=== PATIENT | female | born 1980 | race Caucasian/White ===

== ENCOUNTER → 2017-07-28 | Outpatient (REF) | payer OTHER | LOC: M LAB REF 16:14 | DX: J11.1 Influenza due to unidentified influenza virus with other respiratory manifestations (principal) | CPT/HCPCS: 87633 ==

== ENCOUNTER → 2018-06-26 | Outpatient (REF) | payer OTHER ==
[~2018-06-26] MED LIST: /ADVA50050 INH; ALBUPOW9 INH; PERCOCET FT
[2018-06-26 18:05] LABS: BASO % 0.6 % (0.0-1.0); EOS # 0.1 10^3/uL (0.0-0.50); EOS % 0.8 % (0.0-3.0); HEMATOCRIT 40.5 % (36.0-47.0); HEMOGLOBIN 13.9 g/dl (12.0-15.5); LYMPH # 2.2 10^3/uL (1.5-4.5); LYMPH % 35.2 % (24.0-44.0); MEAN CORPUSCULAR HEMOGLOBIN 31.6 pg (27.0-33.0); MEAN CORPUSCULAR HGB CONC 34.3 g/dl (32.0-36.5); MONO # 0.4 10^3/uL (0.0-0.8); NEUTROPHILS # 3.5 10^3/uL (1.8-7.7); NEUTROPHILS % 56.1 % (36.0-66.0); PLATELET COUNT, AUTOMATED 286 10^3/uL (150-450); WHITE BLOOD COUNT 6.2 10^3/uL (4.0-10.0)
[2018-06-26 18:18] LABS: ALBUMIN 3.7 GM/DL (3.2-5.2); ALT/SGPT 12 U/L (12-78); BILIRUBIN,TOTAL 0.4 MG/DL (0.2-1.0); BLOOD UREA NITROGEN 10 MG/DL (7-18); CALCIUM LEVEL 8.6 MG/DL (8.5-10.1); CARBON DIOXIDE LEVEL 26 MEQ/L (21-32); CHLORIDE LEVEL 104 MEQ/L (98-107); CHOLESTEROL LEVEL 185 MG/DL (<200); CHOLESTEROL RISK RATIO 3.303 (<5); CREATININE FOR GFR 0.78 MG/DL (0.55-1.30); GLOMERULAR FILTRATION RATE > 60.0 (>60); GLUCOSE, FASTING 89 MG/DL (70-100); HDL CHOLESTEROL 56 MG/DL (>40); LDL CHOLESTEROL 113 MG/DL (<100); NON-HDL-C 129 MG/DL; POTASSIUM SERUM 4.8 MEQ/L (3.5-5.1); SODIUM LEVEL 138 MEQ/L (136-145); TOTAL PROTEIN 6.7 GM/DL (6.4-8.2); TRIGLYCERIDES LEVEL 79 MG/DL (<150)
[2018-06-26 19:17] LABS: HEMOGLOBIN A1c 5.3 %
== END ==
LOC: M LAB REF 16:49
PROVIDERS: ATTEND Nurse Practitioner Family
DX: Z13.9 Encounter for screening, unspecified (principal)

== ENCOUNTER → 2018-07-07 | Outpatient (CLI) | payer OTHER ==
--- NOTE | 2018-07-07 11:43 | REPMRS ---
Patient History The patient states she has not had a clinical breast exam in over a year. Family history of breast cancer at age 55 in mother, breast cancer at age 70 in maternal grandmother, liver cancer in father, liver cancer in paternal uncle, breast cancer at age 70 in paternal grandmother. 3D TOMOSYNTHESIS WAS PERFORMED. Digital Mammo Screening Bilat: July 07, 2018 - Exam #: [id number] Bilateral CC and MLO view(s) were taken. Technologist: Delmy Spicer, Technologist Prior study comparison: December 30, 2014, digital mammo diagnostic bilateral performed at [facility]. FINDINGS: The breast tissue is heterogeneously dense. This may lower the sensitivity of mammography. There has been no change in the appearance of the mammogram from the prior studies. There is a moderate amount of residual fibroglandular tissue which is fairly symmetric. There is no interval development of dominant mass, areas of architectural distortion, or clustered microcalcification typical of malignancy. Assessment: BI-RADS/ACR category 1 mammogram. Negative Mammogram. Recommendation Routine screening mammogram in 1 year (for women over age 40). This mammogram was interpreted with the aid of an FDA-approved computer-aided dectection system. THE LIFETIME RISK OF BREAST CANCER IS 34.1 %, THEREFORE SUPPLEMENTAL SCREENING MRI OF THE BREASTS IS RECOMMENDED. Electronically Signed By: Ricco Vale MD 07/07/18 [id number]
== END ==
LOC: M RAD 10:58
PROVIDERS: ATTEND Nurse Practitioner Family
DX: Z12.31 Encounter for screening mammogram for malignant neoplasm of breast (principal); Z80.3 Family history of malignant neoplasm of breast; Z80.0 Family history of malignant neoplasm of digestive organs; N60.31 Fibrosclerosis of right breast; N60.32 Fibrosclerosis of left breast

== ENCOUNTER 2019-02-17 07:09 | Inpatient (IN) | payer MEDICAID, OTHER ==
[~2019-02-17] VITALS: Ht 147.3 cm; Wt 87.8 kg
[~2019-02-17 07:09] MED LIST changes: -/ADVA50050 INH; +ADVA1AER2 INH; +OXYC1TAB23 FT; -PERCOCET FT
[2019-02-17] MEDS ORDERED: LORazepam 2 MG TAB PO STA (07:15)
[2019-02-17 08:34] LABS: HEMATOCRIT 40.8 % (36.0-47.0); MEAN CORPUSCULAR HEMOGLOBIN 32.4 pg (27.0-33.0); MEAN CORPUSCULAR HGB CONC 34.3 g/dl (32.0-36.5); MEAN CORPUSCULAR VOLUME 94.4 fl (80.0-96.0); PLATELET COUNT, AUTOMATED 447 10^3/uL (150-450); RED BLOOD COUNT 4.32 10^6/uL (4.00-5.40); WHITE BLOOD COUNT 9.9 10^3/uL (4.0-10.0)
[2019-02-17 08:53] LABS: AMPHETAMINES LEVEL URINE NEGATIVE (NEGATIVE); BARBITURATES URINE NEGATIVE (NEGATIVE); BENZODIAZEPINES URINE NEGATIVE (NEGATIVE); CANNABINOIDS URINE POSITIVE (NEGATIVE); COCAINE METABOLITE URINE NEGATIVE (NEGATIVE); METHADONE URINE NEGATIVE (NEGATIVE); OPIATES URINE NEGATIVE (NEGATIVE); PHENCYCLIDINE URINE NEGATIVE (NEGATIVE)
[2019-02-17 08:57] LABS: HCG, SERUM QUALITATIVE NEGATIVE (NEGATIVE)
[2019-02-17] MEDS ORDERED: MOM 30ML SUSPENSION UDC PO PRN (09:00)
[2019-02-17 09:10] LABS: ACETAMINOPHEN LEVEL < 2.0 UG/ML (10.0-30.0); ALBUMIN 4.1 GM/DL (3.2-5.2); ALT/SGPT 13 U/L (12-78); BILIRUBIN,DIRECT 0.1 MG/DL (0.0-0.2); BILIRUBIN,TOTAL 0.4 MG/DL (0.2-1.0); BLOOD UREA NITROGEN 13 MG/DL (7-18); CALCIUM LEVEL 9.3 MG/DL (8.5-10.1); CARBON DIOXIDE LEVEL 24 MEQ/L (21-32); CHLORIDE LEVEL 105 MEQ/L (98-107); CREATININE FOR GFR 0.82 MG/DL (0.55-1.30); ETHYL ALCOHOL (ETHANOL) < 0.003 % (0.000-0.010); GLOMERULAR FILTRATION RATE > 60.0 (>60); GLUCOSE, FASTING 87 MG/DL (70-100); POTASSIUM SERUM 3.9 MEQ/L (3.5-5.1); SALICYLATE LEVEL 5.3 MG/DL (5.0-30.0); SODIUM LEVEL 139 MEQ/L (136-145); TOTAL PROTEIN 7.1 GM/DL (6.4-8.2)
[2019-02-17] MEDS ORDERED: LAMI25TA PO (09:17)
[2019-02-17] MEDS ORDERED: SERO1TAB PO (09:17)
[2019-02-17] MEDS ORDERED: ACETAMINOPHEN TAB 650MG DOSE (2X325MG) PO PRN (13:30)
[2019-02-17] MEDS ORDERED: OLANZapine ORAL DISINTEGRATING TAB 5MG PO PRN (13:30)
[2019-02-17] MEDS ORDERED: MAALOX 30 ML SUSP *UDC PO PRN (13:30)
[2019-02-17 15:39] VITALS: BP 130/94
[2019-02-17] MEDS ORDERED: NICOTINE 21MG/24HR 1 EA TRANSDERMAL TD PRN (17:15)
--- NOTE | 2019-02-17 19:22 | ECGEPIP ---
[facility] - ED Test Date: 2019-02-17 Pat Name: MURIEL MABRY Department: Room: - Gender: Female Religious Education Coordinator: SANJIV : 1980 Requested By: Joy Allen Order Number: [id number] Reading MD: Leonard Rodriguez Measurements Intervals [place] Rate: 54 P: 40 MA: 161 QRS: 80 QRSD: 84 T: 64 QT: 420 QTc: 401 Interpretive Statements SINUS BRADYCARDIA BENIGN EARLY REPOLARIZATION NO PRIORS FOR COMPARISON Electronically Signed on 02-17-2019 19:21:58 EDT by Leonard Rodriguez
[2019-02-17] MEDS: traZODone 50 MG TAB PO PRN (23:15)
[2019-02-17] MEDS: LORazepam 2 MG TAB PO PRN (23:15)
[2019-02-18 06:53] VITALS: BP 118/80
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
[2019-02-18] MEDS: LORazepam 2 MG TAB PO PRN (12:37)
--- NOTE | 2019-02-18 12:46 | HPEPDOC ---
General Date of Admission Feb 17, 2019 at 13:22 Date of Service: Feb 18, 2019 Chief Complaint The patient is a 38-year-old female admitted with a reason for visit of Unspecified Psychosis. Source: Patient, Old records History of Present Illness 38 year old female with PMH of bipolar disorder, asthma since childhood was admitted to the [facility] for a Manic episode and when she had expressed thoughts of self harm. i am seeing the pateint today for medical history and physical. She denies any SOB but has chronic cough. She is very angry as she has been treated like a common criminal and had been handcuffed and brought to the hospital when she said that she had aready taken a mental health day from work to voluntarily come to the hospital. She was in the school premises in plain clothes just to speak to her construction supervisor and another colleague when the police was called by another colleague and she was forcibly brought here. She is very anxious about her kids and is concerned about whether she is going to loose their custody or not. Home Medications Scheduled Lamotrigine (Lamictal) 25 Mg Tablet, 25 MG PO BID, (Reported) Quetiapine Fumarate (Seroquel) 100 Mg Tablet, 100 MG PO QHS, (Reported) Allergies Coded Allergies: latex (Verified Allergy, Severe, Swelling, 02/17/19) codeine (Verified Adverse Reaction, Intermediate, vomits, 02/17/19) promethazine (Verified Adverse Reaction, Unknown, makes me crazy, 02/17/19) Past Medical History Medical History Bipolar, asthma, pectus excavatum. Surgical History Partial Hysterectomy, tubal ligation, LEEP procedure, tonsillectomy, adenoidectomy Family History Significant Family History: Asthma (mother), Cancer (mother and 12 other relates with breast cancer), COPD (mother), Diabetes (mother), Hypertension (mother) Mother bipolar disorder Father and brother polysubstance abuse son ADHD, sleep apnea as a , Social History * Smoker: current smoker Alcohol: Denies Drugs: marijuana A-FIB/CHADSVASC A-FIB History Current/History of A-Fib/PAF?: No Review of Systems Constitutional: Reports: Chills; Denies: Fever, Night Sweats Eyes: Denies: Pain, Vision change ENT: Denies: Head Aches, Ear Pain, Dysphagia Skin: Denies: Rash, Lesions, Breakdown Pulmonary: Denies: Dyspnea, Cough Cardiovascular: Denies: Chest Pain, Palpitations, Orthopnea, Paroxysmal Noc. Dyspnea, Lt Headedness Gastrointestinal: Denies: Nausea, Vomiting, Abdominal Pain, Diarrhea Genitourinary: Denies: Dysuria, Frequency, Incontinence, Retention Hematologic: Denies: Bruising, Bleeding Excessively Musculoskeletal: Denies: Neck Pain, Back Pain, Joint Pain, Muscle Pain, Spasms Psych: Reports: Anxiety, Anger, Other Psych (manic) Physical Examination General Exam: Positive: Alert, Cooperative, No Acute Distress Eye Exam: Positive: PERRLA, Conjunctiva & lids normal, EOMI; Negative: Sclera icteric Neck Exam: Positive: Supple; Negative: JVD, thyromegaly Chest Exam: Positive: Clear to auscultation, Normal air movement Heart Exam: Positive: Tachycardic, Regular Rhythm, Normal S1, Normal S2; Negative: Murmurs, Rubs Abdomen Exam: Positive: Normal bowel sounds, Soft; Negative: Tenderness, Hepatospenomegaly Extremity Exam: Positive: Normal pulses; Negative: Clubbing, Cyanosis, Edema Skin Exam: Positive: Nl turgor and temperature; Negative: Breakdown, Lesion Neuro Exam: Positive: Normal Gait, Strength at 5/5 X4 ext, Normal Tone Psych Exam: Positive: Anxiety, Memory Intact, Other (hyper, manic, talking nonstop with foul language. ) Vital Signs Vital Signs Date Time Temp Pulse Resp B/P (MAP) Pulse Ox O2 Delivery O2 Flow Rate FiO2 02/18/19 06:53 99.1 87 12 118/80 (93) 02/17/19 15:39 96 02/17/19 13:46 Room Air Assessment/Plan 38 year old female with PMH of bipolar disorder, asthma since childhood was admitted to the [facility] for a Manic episode and when she had expressed thoughts of self harm. i am seeing the pateint today for medical history and physical. Psych issues as per psychiatry Asthma albuterol prn. Protein calorie malnutrition BMI is 17.8 though albumin is normal which may be falsely elevated from dehydration. may be mildly dehydrated due to her maricarmen has not chloé eating or drinking well. Plan / VTE VTE Prophylaxis Ordered?: Yes CATRACHITA TRUONG MD Feb 18, 2019 11:50
[2019-02-18] MEDS: OLANZapine ORAL DISINTEGRATING TAB 5MG PO PRN (16:21)
[2019-02-18] MEDS: QUEtiapine FUMARATE 200 MG TAB PO SCH (20:54)
[2019-02-18] MEDS: DIVALPROEX 500 MG TAB PO SCH (20:54)
[2019-02-19 06:47] VITALS: BP 109/58
[2019-02-19] MEDS: OLANZapine ORAL DISINTEGRATING TAB 5MG PO PRN ×2 (08:48→17:37)
--- NOTE | 2019-02-19 10:42 | MHIPNPDOC ---
[facility] Progress Note Progress Note DATE OF SERVICE: 02/19/19 HISTORY: Patient is a 38 -year-old , female, who presented to the ED on 02/17 via [employer]. It was reported that she arrived at work ([employer]) that morning in an agitated state which escalated to rapid cycling between elevated/agitated mood followed by periods of sitting on the floor in a sullen/depressed state of mind. The police were contacted by her production crew supervisor to assist, and upon their arrival she became highly agitated and uncooperative. She made reference to suicide as well as stated "this is why people shoot up [facility]." The patient then tried to leave work with the stated intent to drive to her children's school at which time she was taken into custody by D and brought to the ED. Upon her arrival to the ED she remained agitated, uncooperative, and hostile. Her speech was rapid, pressured and tangential. When the handcuffs were removed she was seen slapping the wall and bed repeatedly in anger while screaming profanities at the police. When alone in the room the patient was hear rambling to herself angrily. When examined in the ED she continued to ramble angrily about being "dragged" here, when she reported that she intended to come here voluntarily after work. She reportedly told the nurse that she was manic for the past 30 days and that she has not slept for the last 20 days. She also reportedly mentioned she would kill herself if her children were taken away from her. VITAL SIGNS: See below. NEW TEST RESULTS: See below. CURRENT MEDICATIONS: See below. MENTAL STATUS EXAMINATION: General Appearance: unkempt, ds/not appear stated age, hospital scrubs/personal clothing Build: thin Demeanor: very fidgety Eye Contact: average Activity: anxious Behavior: cooperative, less hyperactive, restless Speech: clear, reg rate/volume/rhythm Mood: "better" Affect: Appropriate, congruent Thought Process: flight of ideas Thought Content (Delusions): other (reports HI, denies SI/AVH) Thought Content (Other): preoccupied (regarding the events in which she was brought to the hospital), coherent Thought Content (Aggressive): aggressive (assess) (verbal threats regarding her coworker) Perception (Hallucinations): none reported Perception (Other): none reported Cognition (Impairment of): none reported Cognition(Intelligence Est.): average Oriented: Awake, Alert, Oriented times three Insight: fair Judgment: fair Psychosis: Denies DIAGNOSES: 1. Bipolar Disorder, Type 1, mre Mixed Manic episode ASSESSMENT: The patient was seen today and is reporting the Depakote is working, she doesn't feel "all over the place anymore" and she feels a lot calmer. She would like to keep taking the Depakote and Seroquel at night, she really felt like the helped her mood and maricarmen. She reports also that the Ativan/Zyprexa helped her anxiety and agitation, but that is also made her feel "dopey" at the dose she was given. She reports she went to two groups and says they "alright" and that it "helps to get shit off your chest." She has tried contacting her family members and she states after talking to them they continue to act like she is inconveniencing them, and states "fuck them, I don't need them." She is still clearly upset and easily agitated regarding the circumstances in which she was brought to the hospital. She says she is very angry with "Karen" and has thoughts of hurting her but immediately says afterwards, "I would never actually do that, I'm just very angry and upset about the whole situation." She reports she does not feel suicidal because she has two kids she has to be alive for. She reports HI, denies SI/AVH. She feels safe here. MANAGEMENT PLAN: 1. continue depakote 500mg qhs 2. seroquel 200mg qhs 3. vistaril 50mg q4hr prn anxiety 4. ativan 2mg and zyprexa 5mg q4hr prn anxiety/agitation/maricarmen TIME SPENT: 30 minutes. Vital Signs Vital Signs Date Time Temp Pulse Resp B/P (MAP) Pulse Ox O2 Delivery O2 Flow Rate FiO2 02/19/19 06:47 98.4 61 12 109/58 (75) 02/17/19 15:39 96 02/17/19 13:46 Room Air Current Medications Current Medications Medications (Trade) Dose Ordered Sig/Nate Route PRN Reason Start Time Stop Time Status Last Admin Dose Admin Acetaminophen (Tylenol Tab) 650 mg Q6HP PRN PO HEADACHE or DISCOMFORT 02/17/19 13:30 Al Hydrox/Mg Hydrox/Simethicone (Mylanta) 30 ml Q4HP PRN PO HEARTBURN/INDIGESTION 02/17/19 13:30 Albuterol Sulfate (Proventil, Ventolin Hfa) 2 puff Q2HP PRN INH SHORTNESS OF BREATH 02/18/19 12:45 Divalproex Sodium (Depakote) 500 mg QHS PO 02/18/19 21:00 02/18/19 20:54 Home Med (Med Rec Complete!) ASDIRECTED XX 02/17/19 13:00 02/17/19 13:00 DC Hydroxyzine HCl (Atarax) 50 mg Q4HP PRN PO ANXIETY/AGITATION 02/18/19 12:00 Lorazepam (Ativan) 2 mg Q6HP PRN PO ANXIETY/AGITATION 02/17/19 13:30 02/18/19 12:37 Lorazepam (Ativan) 2 mg STAT STAT PO 02/17/19 07:15 02/17/19 07:16 DC 02/17/19 07:52 Magnesium Hydroxide (Milk Of Magnesia) 30 ml DAILYPRN PRN PO CONSTIPATION 02/17/19 09:00 Nicotine (Nicoderm Cq 21mg) 1 patch DAILYPRN PRN TD NICOTINE WITHDRAWAL 02/17/19 17:15 Cancel Nicotine (Nicorette) 4 mg Q2HP PRN PO NICOTINE WITHDRAWAL 02/17/19 21:45 Olanzapine (ZyPREXA ZYDIS) 5 mg Q4HP PRN PO ANXIETY/AGITATION 02/18/19 12:00 02/19/19 08:48 Olanzapine (ZyPREXA ZYDIS) 10 mg Q6HP PRN PO ANXIETY/AGITATION 02/17/19 13:30 02/18/19 12:06 DC 02/17/19 23:16 Quetiapine Fumarate (SEROquel) 200 mg QHS PO 02/18/19 21:00 02/18/19 20:54 Trazodone HCl (Desyrel) 50 mg QHSP PRN PO INSOMNIA 02/17/19 21:00 02/17/19 23:15 Allergies Coded Allergies: latex (Verified Allergy, Severe, Swelling, 02/17/19) codeine (Verified Adverse Reaction, Intermediate, vomits, 02/17/19) promethazine (Verified Adverse Reaction, Unknown, makes me crazy, 02/17/19) JAMEE CURIEL DO Feb 19, 2019 10:42 am
[2019-02-19] MEDS ORDERED: OLANZapine ORAL DISINTEGRATING TAB 5MG PO STA (11:48)
[2019-02-19] MEDS: LORazepam 2 MG TAB PO PRN ×2 (11:54→17:36)
[2019-02-19] MEDS ORDERED: NICOTINE POLACRILEX 2 MG GUM PO PRN (12:45)
[2019-02-19] MEDS: ALBUTEROL 90 MCG/ACT 8GM HFA INHALER INH PRN (17:33)
[2019-02-19 18:00] VITALS: BP 109/56
[2019-02-19] MEDS: QUEtiapine FUMARATE 200 MG TAB PO SCH (20:48)
[2019-02-19] MEDS: DIVALPROEX 500 MG TAB PO SCH (20:48)
[2019-02-20 06:37] VITALS: BP 128/76
[2019-02-20] MEDS ORDERED: OLANZapine 2.5MG TABLET PO SCH (09:00)
--- NOTE | 2019-02-20 10:00 | MHIPNPDOC ---
[facility] Progress Note Progress Note DATE OF SERVICE: 02/20/19 HISTORY: Patient is a 38 -year-old , female, who presented to the ED on 02/17 via [employer]. It was reported that she arrived at work ([employer]) that morning in an agitated state which escalated to rapid cycling between elevated/agitated mood followed by periods of sitting on the floor in a sullen/depressed state of mind. The police were contacted by her knitting supervisor to assist, and upon their arrival she became highly agitated and uncooperative. She made reference to suicide as well as stated "this is why people shoot up alena krishnamurthy." The patient then tried to leave work with the stated intent to drive to her children's school at which time she was taken into custody by D and brought to the ED. Upon her arrival to the ED she remained agitated, uncooperative, and hostile. Her speech was rapid, pressured and tangential. When the handcuffs were removed she was seen slapping the wall and bed repeatedly in anger while screaming profanities at the police. When alone in the room the patient was hear rambling to herself angrily. When examined in the ED she continued to ramble angrily about being "dragged" here, when she reported that she intended to come here voluntarily after work. She reportedly told the nurse that she was manic for the past 30 days and that she has not slept for the last 20 days. She also reportedly mentioned she would kill herself if her children were taken away from her. VITAL SIGNS: See below. NEW TEST RESULTS: See below. CURRENT MEDICATIONS: See below. MENTAL STATUS EXAMINATION: General Appearance: unkempt, ds/not appear stated age, hospital scrubs/personal clothing Build: thin Demeanor: average Eye Contact: average Activity: anxious Behavior: cooperative, less hyperactive, less restless Speech: clear, reg rate/volume/rhythm Mood: "much much better" Affect: Appropriate, congruent Thought Process: flight of ideas Thought Content (Delusions): other (reports HI, denies SI/AVH) Thought Content (Other): preoccupied (regarding the events in which she was brought to the hospital), coherent Thought Content (Aggressive): aggressive (assess) (verbal threats regarding her coworker and her ex ) Perception (Hallucinations): none reported Perception (Other): none reported Cognition (Impairment of): none reported Cognition(Intelligence Est.): average Oriented: Awake, Alert, Oriented times three Insight: fair Judgment: fair Psychosis: Denies DIAGNOSES: 1. Bipolar Disorder, Type 1, mre Mixed Manic episode ASSESSMENT: The patient was seen today and is reporting that she is planning her lawsuit against [employer] (her employer). Pt showed me her letter from [facility] where it states she is on "Paid Administrative Leave" and explained to her what exactly it means (not her personal/sick time, is paid until medically/psychiatric treatment). Advised it is a good thing so she can keep focused on her mental health treatment. Pt calmed down and stated "oh... good" and stated she would [employer] school any longer. She is still clearly upset and easily agitated regarding the circumstances in which she was brought to the hospital and not being able to leave when She wants to. She also reports the Depakote is definitely helping and agreeable to increases to improve maricarmen and lability which is still very present. States she's tolerating well. Per staff pt wandering into other pt's rooms, attempting to elope, taking food off people's trays." Pt denies when asked and states she wants her clothes but told no due to behaviors on the unit which she became upset and agitated with leaving office. She didn't sleep as well last night, she kept waking up during the night, but also admits she fell asleep yesterday afternoon and woke up just before dinner. She reports she is no longer in her "rage and regret" stage. She reports also that the Ativan/Zyprexa helped her anxiety and agitation, "as long as it is not more than 2mg of Ativan." She reports she went to a group yesterday and it went "alright." She says she really likes therapy sessions because they give her an outlet for her feeling. When I asked her how her appetite has been, and how she has been eating while here, she reports "I don't like food, but I still eat." She reports she is still very upset and angry with 'Karen." When I ask her if she has any thoughts of hurting her self, she says "other than killing Jason, but he's 3000 miles away." She reports she does not feel suicidal because she has two kids she has to be alive for. She reports HI, denies SI/AVH. She feels safe here. Pt agreeable to zyprexa 2.5mg bid to improve maricarmen/agitation with increase in depakote. MANAGEMENT PLAN: increase depakote, start zyprexa 2.5mg bid. Depakote lvl Saturday 1. depakote 750mg qhs 2. seroquel 200mg qhs 3. vistaril 50mg q4hr prn anxiety 4. ativan 2mg and zyprexa 5mg q4hr prn anxiety/agitation/maricarmen TIME SPENT: 30 minutes. Vital Signs Vital Signs Date Time Temp Pulse Resp B/P (MAP) Pulse Ox O2 Delivery O2 Flow Rate FiO2 02/20/19 06:37 97.4 87 14 128/76 (93) 02/17/19 15:39 96 02/17/19 13:46 Room Air Current Medications Current Medications Medications (Trade) Dose Ordered Sig/Nate Route PRN Reason Start Time Stop Time Status Last Admin Dose Admin Acetaminophen (Tylenol Tab) 650 mg Q6HP PRN PO HEADACHE or DISCOMFORT 02/17/19 13:30 Al Hydrox/Mg Hydrox/Simethicone (Mylanta) 30 ml Q4HP PRN PO HEARTBURN/INDIGESTION 02/17/19 13:30 Albuterol Sulfate (Proventil, Ventolin Hfa) 2 puff Q2HP PRN INH SHORTNESS OF BREATH 02/18/19 12:45 02/19/19 17:33 Divalproex Sodium (Depakote) 500 mg QHS PO 02/18/19 21:00 02/19/19 20:48 Home Med (Med Rec Complete!) ASDIRECTED XX 02/17/19 13:00 02/17/19 13:00 DC Hydroxyzine HCl (Atarax) 50 mg Q4HP PRN PO ANXIETY/AGITATION 02/18/19 12:00 Lorazepam (Ativan) 2 mg Q6HP PRN PO ANXIETY/AGITATION 02/17/19 13:30 02/19/19 17:36 Lorazepam (Ativan) 2 mg STAT STAT PO 02/17/19 07:15 02/17/19 07:16 DC 02/17/19 07:52 Magnesium Hydroxide (Milk Of Magnesia) 30 ml DAILYPRN PRN PO CONSTIPATION 02/17/19 09:00 Nicotine (Nicoderm Cq 21mg) 1 patch DAILYPRN PRN TD NICOTINE WITHDRAWAL 02/17/19 17:15 Cancel Nicotine (Nicorette) 2 mg Q2HP PRN PO SMOKING CESSATION 02/19/19 12:45 02/19/19 12:45 DC Nicotine (Nicorette) 4 mg Q2HP PRN PO NICOTINE WITHDRAWAL 02/17/19 21:45 Olanzapine (ZyPREXA ZYDIS) 5 mg Q4HP PRN PO ANXIETY/AGITATION 02/18/19 12:00 02/19/19 17:37 Olanzapine (ZyPREXA ZYDIS) 5 mg STAT STAT PO 02/19/19 11:48 02/19/19 11:50 DC 02/19/19 11:55 Olanzapine (ZyPREXA ZYDIS) 10 mg Q6HP PRN PO ANXIETY/AGITATION 02/17/19 13:30 02/18/19 12:06 DC 02/17/19 23:16 Quetiapine Fumarate (SEROquel) 200 mg QHS PO 02/18/19 21:00 02/19/19 20:48 Trazodone HCl (Desyrel) 50 mg QHSP PRN PO INSOMNIA 02/17/19 21:00 02/17/19 23:15 Allergies Coded Allergies: latex (Verified Allergy, Severe, Swelling, 02/17/19) codeine (Verified Adverse Reaction, Intermediate, vomits, 02/17/19) promethazine (Verified Adverse Reaction, Unknown, makes me crazy, 02/17/19) JAMEE CURIEL DO Feb 20, 2019 10:00 am
[2019-02-20] MEDS ORDERED: OLANZapine 2.5MG TABLET PO ONE (12:00)
[2019-02-20] MEDS: NICOTINE POLACRILEX 2 MG GUM PO PRN (16:48)
[2019-02-20 18:00] VITALS: BP 106/62
[2019-02-20] MEDS: QUEtiapine FUMARATE 200 MG TAB PO SCH (20:17)
[2019-02-20] MEDS: DIVALPROEX 250 MG TAB PO SCH (20:17)
[2019-02-20] MEDS: OLANZapine 2.5MG TABLET PO SCH (20:17)
[2019-02-20] MEDS: OLANZapine ORAL DISINTEGRATING TAB 5MG PO PRN (22:49)
[2019-02-20] MEDS: traZODone 50 MG TAB PO PRN (23:29)
[2019-02-21 06:29] VITALS: BP 111/57
[2019-02-21] MEDS: OLANZapine 2.5MG TABLET PO SCH ×2 (08:39→22:05)
[2019-02-21] MEDS: NICOTINE POLACRILEX 2 MG GUM PO PRN ×2 (08:40→12:07)
[2019-02-21 16:28] VITALS: BP 113/65
[2019-02-21] MEDS: traZODone 50 MG TAB PO PRN (22:05)
[2019-02-21] MEDS: QUEtiapine FUMARATE 200 MG TAB PO SCH (22:05)
[2019-02-21] MEDS: DIVALPROEX 250 MG TAB PO SCH (22:05)
[2019-02-21] MEDS: ALBUTEROL 90 MCG/ACT 8GM HFA INHALER INH PRN (22:10)
[2019-02-22 06:16] VITALS: BP 111/76
[2019-02-22] MEDS: ALBUTEROL 90 MCG/ACT 8GM HFA INHALER INH PRN ×2 (07:16→21:03)
[2019-02-22] MEDS: OLANZapine 2.5MG TABLET PO SCH ×2 (08:28→20:26)
[2019-02-22] MEDS: NICOTINE POLACRILEX 2 MG GUM PO PRN (08:30)
[2019-02-22 16:10] VITALS: BP 96/59
[2019-02-22] MEDS: QUEtiapine FUMARATE 200 MG TAB PO SCH (20:26)
[2019-02-22] MEDS: DIVALPROEX 250 MG TAB PO SCH (20:26)
[2019-02-22] MEDS: LORazepam 2 MG TAB PO PRN (23:11)
[2019-02-23 06:37] VITALS: BP 95/61
[2019-02-23] MEDS: OLANZapine 2.5MG TABLET PO SCH ×2 (08:26→20:45)
[2019-02-23] MEDS: OLANZapine ORAL DISINTEGRATING TAB 5MG PO PRN ×2 (09:53→18:34)
--- NOTE | 2019-02-23 10:57 | MHIPNPDOC ---
[facility] Progress Note Progress Note DATE OF SERVICE: 02/23/19 HISTORY: Patient is a 38 -year-old , female, who presented to the ED on 02/17 via [facility]. It was reported that she arrived at work ([employer]) that morning in an agitated state which escalated to rapid cycling between elevated/agitated mood followed by periods of sitting on the floor in a sullen/depressed state of mind. The police were contacted by her supervisor [employer] to assist, and upon their arrival she became highly agitated and uncooperative. She made reference to suicide as well as stated "this is why people shoot up alena krishnamurthy." The patient then tried to leave work with the stated intent to drive to her children's school at which time she was taken into custody by D and brought to the ED. Upon her arrival to the ED she remained agitated, uncooperative, and hostile. Her speech was rapid, pressured and tangential. When the handcuffs were removed she was seen slapping the wall and bed repeatedly in anger while screaming profanities at the police. When alone in the room the patient was hear rambling to herself angrily. When examined in the ED she continued to ramble angrily about being "dragged" here, when she reported that she intended to come here voluntarily after work. She reportedly told the nurse that she was manic for the past 30 days and that she has not slept for the last 20 days. She also reportedly mentioned she would kill herself if her children were taken away from her. VITAL SIGNS: See below. NEW TEST RESULTS: Valproic Acid Level 02/22/2019 was 137.4ug/ml CURRENT MEDICATIONS: See below. MENTAL STATUS EXAMINATION: General Appearance: unkempt, ds/not appear stated age, hospital scrubs/personal clothing Build: thin Demeanor: average Eye Contact: average Activity: average, less anxious Behavior: cooperative, less restless Speech: clear, reg rate/volume/rhythm Mood: "frustrated, but happy" Affect: Appropriate, congruent Thought Process: logical/linear, intact Thought Content (Delusions): denies SI/HI/AVH Thought Content (Other): appropriate, coherent Thought Content (Aggressive): none reported Perception (Hallucinations): none reported Perception (Other): none reported Cognition (Impairment of): none reported Cognition(Intelligence Est.): average Oriented: Awake, Alert, Oriented times three Insight: fair Judgment: fair Psychosis: Denies DIAGNOSES: 1. Bipolar Disorder, Type 1, mre Mixed Manic episode ASSESSMENT: The patient was seen today and is reporting that she is a little frustrates she is not out of here yet but she is still happy and feels well. She is still clearly upset and easily agitated regarding the circumstances in which she was brought to the hospital and not being able to leave when She wants to. She also reports the Depakote is definitely helping and she is agreeable to bringing it back down to 500mg at night. She didn't sleep as well last night because her neighbor was tossing and turning all night, and there was a lot of noise outside her room. Otherwise, she reports she is falling asleep without problems, and did sleep well over the weekend. She reports she has been going to groups and continues to find them very helpful. Her mom and sister came to visit over the weekend which reportedly went "alright." When I asked her how her appetite is, she reports it is much better than last week, she eats all of her meals. She reports her urges to smoke have been improving ans she is hoping to continue trying to quit upon d/c. She denies SI/HI/AVH. She feels safe here. MANAGEMENT PLAN: decrease depakote to 500mg qhs d/t elevated depakote level yesterday (137.4ug/ml) 1. depakote 750mg qhs 2. seroquel 200mg qhs 3. vistaril 50mg q4hr prn anxiety 4. zyprexa 2.5mg bid 4. ativan 2mg prn anxiety/agitation/maricarmen TIME SPENT: 30 minutes. Vital Signs Vital Signs Date Time Temp Pulse Resp B/P (MAP) Pulse Ox O2 Delivery O2 Flow Rate FiO2 02/23/19 06:37 97.1 83 18 95/61 (72) 02/17/19 15:39 96 02/17/19 13:46 Room Air Current Medications Current Medications Medications (Trade) Dose Ordered Sig/Nate Route PRN Reason Start Time Stop Time Status Last Admin Dose Admin Acetaminophen (Tylenol Tab) 650 mg Q6HP PRN PO HEADACHE or DISCOMFORT 02/17/19 13:30 Al Hydrox/Mg Hydrox/Simethicone (Mylanta) 30 ml Q4HP PRN PO HEARTBURN/INDIGESTION 02/17/19 13:30 Albuterol Sulfate (Proventil, Ventolin Hfa) 2 puff Q2HP PRN INH SHORTNESS OF BREATH 02/18/19 12:45 02/22/19 21:03 Divalproex Sodium (Depakote) 500 mg QHS PO 02/18/19 21:00 02/20/19 11:39 DC 02/19/19 20:48 Divalproex Sodium (Depakote) 750 mg QHS PO 02/20/19 21:00 02/22/19 20:26 Home Med (Med Rec Complete!) ASDIRECTED XX 02/17/19 13:00 02/17/19 13:00 DC Hydroxyzine HCl (Atarax) 50 mg Q4HP PRN PO ANXIETY/AGITATION 02/18/19 12:00 Lorazepam (Ativan) 2 mg Q6HP PRN PO ANXIETY/AGITATION 02/17/19 13:30 02/22/19 23:11 Lorazepam (Ativan) 2 mg STAT STAT PO 02/17/19 07:15 02/17/19 07:16 DC 02/17/19 07:52 Magnesium Hydroxide (Milk Of Magnesia) 30 ml DAILYPRN PRN PO CONSTIPATION 02/17/19 09:00 Nicotine (Nicoderm Cq 21mg) 1 patch DAILYPRN PRN TD NICOTINE WITHDRAWAL 02/17/19 17:15 Cancel Nicotine (Nicorette) 2 mg Q2HP PRN PO SMOKING CESSATION 02/19/19 12:45 02/19/19 12:45 DC Nicotine (Nicorette) 2 mg Q2HP PRN PO NICOTINE WITHDRAWAL 02/20/19 16:45 02/20/19 16:48 Nicotine (Nicorette) 4 mg Q2HP PRN PO NICOTINE WITHDRAWAL 02/17/19 21:45 02/22/19 08:30 Olanzapine (ZyPREXA ZYDIS) 5 mg Q4HP PRN PO ANXIETY/AGITATION 02/18/19 12:00 02/23/19 09:53 Olanzapine (ZyPREXA ZYDIS) 5 mg STAT STAT PO 02/19/19 11:48 02/19/19 11:50 DC 02/19/19 11:55 Olanzapine (ZyPREXA ZYDIS) 10 mg Q6HP PRN PO ANXIETY/AGITATION 02/17/19 13:30 02/18/19 12:06 DC 02/17/19 23:16 Olanzapine (ZyPREXA) 2.5 mg BID PO 02/20/19 09:00 Cancel Olanzapine (ZyPREXA) 2.5 mg BID PO 02/20/19 21:00 02/23/19 08:26 Quetiapine Fumarate (SEROquel) 200 mg QHS PO 02/18/19 21:00 02/22/19 20:26 Trazodone HCl (Desyrel) 50 mg QHSP PRN PO INSOMNIA 02/17/19 21:00 02/21/19 22:05 Allergies Coded Allergies: latex (Verified Allergy, Severe, Swelling, 02/17/19) codeine (Verified Adverse Reaction, Intermediate, vomits, 02/17/19) promethazine (Verified Adverse Reaction, Unknown, makes me crazy, 02/17/19) ELEAZAR STEWART MD Feb 23, 2019 10:56
[2019-02-23] MEDS: NICOTINE POLACRILEX 2 MG GUM PO PRN (15:26)
[2019-02-23 16:50] VITALS: BP 110/75
--- NOTE | 2019-02-23 17:53 | MHIPN ---
DATE: 02/21/2019 SUBJECTIVE: "I'm feeling better with this medication. I stopped lamotrigine and relapsed." OBJECTIVE: She is a 38-year-old, female who presented to the emergency department (ED) via [facility] Department for a manic episode. Patient was trying to wean herself off from lamotrigine and about a month ago she relapsed, she did not sleep, and was brought to the hospital. Currently, she is on Depakote, Zyprexa, and Seroquel. Patient reports she has been doing better. Patient is cooperative, soft-spoken, however continues to have pressured speech and circumstantiality, flight of ideas. MENTAL STATUS EXAMINATION: She is thin built, unkempt, made intermittent eye contact. Psychomotor activity is mildly increased. Behavior cooperative. Mood is happy. Affect is mood congruent. Thought process: Flight of ideas, circumstantiality, hyperverbal. Thought content somewhat delusional. Denies any perceptual disturbances. She is alert, oriented to time, place, and person. Cognition is intact. VITAL SIGNS: Temperature 98.7, pulse is 70, respiratory rate is 14, blood pressure 111/57. MEDICATIONS: - Depakote 750 mg at night - olanzapine 2.5 mg twice a day - quetiapine 200 mg at night DIAGNOSIS: Bipolar 1 disorder, most recent episode manic. PLAN: Continue current medication. Continue individual, group, milieu therapy. Continuative care was discussed with the nursing staff and was coordinated.
[2019-02-23] MEDS: DIVALPROEX 500 MG TAB PO SCH (20:45)
[2019-02-23] MEDS: QUEtiapine FUMARATE 200 MG TAB PO SCH (20:45)
[2019-02-24 07:20] VITALS: BP 98/62
[2019-02-24] MEDS: hydrOXYzine 50 MG TAB PO PRN ×2 (08:09→22:24)
[2019-02-24] MEDS: OLANZapine 2.5MG TABLET PO SCH ×2 (08:09→20:02)
[2019-02-24] MEDS: LORazepam 2 MG TAB PO PRN (09:58)
--- NOTE | 2019-02-24 10:12 | MHIPNPDOC ---
[facility] Progress Note Progress Note DATE OF SERVICE: 02/24/19 HISTORY: Patient is a 38 -year-old , female, who presented to the ED on 02/17 via [facility]. It was reported that she arrived at work ([employer]) that morning in an agitated state which escalated to rapid cycling between elevated/agitated mood followed by periods of sitting on the floor in a sullen/depressed state of mind. The police were contacted by her supervisor [employer] to assist, and upon their arrival she became highly agitated and uncooperative. She made reference to suicide as well as stated "this is why people shoot up alena krishnamurthy." The patient then tried to leave work with the stated intent to drive to her children's school at which time she was taken into custody by D and brought to the ED. Upon her arrival to the ED she remained agitated, uncooperative, and hostile. Her speech was rapid, pressured and tangential. When the handcuffs were removed she was seen slapping the wall and bed repeatedly in anger while screaming profanities at the police. When alone in the room the patient was hear rambling to herself angrily. When examined in the ED she continued to ramble angrily about being "dragged" here, when she reported that she intended to come here voluntarily after work. She reportedly told the nurse that she was manic for the past 30 days and that she has not slept for the last 20 days. She also reportedly mentioned she would kill herself if her children were taken away from her. VITAL SIGNS: See below. NEW TEST RESULTS: Valproic Acid Level 02/22/2019 was 137.4ug/ml, Depakote level for tomorrow CURRENT MEDICATIONS: See below. MENTAL STATUS EXAMINATION: General Appearance: unkempt, ds/not appear stated age, hospital scrubs/personal clothing Build: thin Demeanor: agitated Eye Contact: average Activity: agitated Behavior: uncooperative, less restless Speech: clear, reg rate/volume/rhythm Mood: "I'm not staying" Affect: agitated Thought Process: logical/linear, intact Thought Content (Delusions): denies SI/HI/AVH Thought Content (Other): appropriate, coherent Thought Content (Aggressive): none reported Perception (Hallucinations): none reported Perception (Other): none reported Cognition (Impairment of): none reported Cognition(Intelligence Est.): average Oriented: Awake, Alert, Oriented times three Insight: fair Judgment: fair Psychosis: Denies DIAGNOSES: 1. Bipolar Disorder, Type 1, mre Mixed Manic episode ASSESSMENT: The patient was seen today agitated due to not being discharged today so that depakote level can be rechecked as depakote level elevated Saturday at 137.4 and depakote decreased to 500mg qhs. She is uncooperative and very verbally agitated walking away from me in visibly agitated state refusing to talk with me further. She did sleep well last night. She reports she has been going to groups and continues to find them very helpful. Her appetite is good. She reports her urges to smoke have been improving ans she is hoping to continue trying to quit upon d/c with nicotine patch. She denies SI/HI/AVH. She feels safe here. MANAGEMENT PLAN: depakote level in am, d/c home tomorrow 1. depakote 500mg qhs 2. seroquel 200mg qhs 3. vistaril 50mg q4hr prn anxiety 4. zyprexa 2.5mg bid 4. ativan 2mg prn anxiety/agitation/maricarmen TIME SPENT: 30 minutes. Vital Signs Vital Signs Date Time Temp Pulse Resp B/P (MAP) Pulse Ox O2 Delivery O2 Flow Rate FiO2 02/24/19 07:20 98.9 96 14 98/62 (74) Current Medications Current Medications Medications (Trade) Dose Ordered Sig/Nate Route PRN Reason Start Time Stop Time Status Last Admin Dose Admin Acetaminophen (Tylenol Tab) 650 mg Q6HP PRN PO HEADACHE or DISCOMFORT 02/17/19 13:30 Al Hydrox/Mg Hydrox/Simethicone (Mylanta) 30 ml Q4HP PRN PO HEARTBURN/INDIGESTION 02/17/19 13:30 Albuterol Sulfate (Proventil, Ventolin Hfa) 2 puff Q2HP PRN INH SHORTNESS OF BREATH 02/18/19 12:45 02/22/19 21:03 Divalproex Sodium (Depakote) 500 mg QHS PO 02/18/19 21:00 02/20/19 11:39 DC 02/19/19 20:48 Divalproex Sodium (Depakote) 500 mg QHS PO 02/23/19 21:00 02/23/19 20:45 Divalproex Sodium (Depakote) 750 mg QHS PO 02/20/19 21:00 02/23/19 13:18 DC 02/22/19 20:26 Home Med (Med Rec Complete!) ASDIRECTED XX 02/17/19 13:00 02/17/19 13:00 DC Hydroxyzine HCl (Atarax) 50 mg Q4HP PRN PO ANXIETY/AGITATION 02/18/19 12:00 02/24/19 08:09 Lorazepam (Ativan) 2 mg Q6HP PRN PO ANXIETY/AGITATION 02/17/19 13:30 02/22/19 23:11 Lorazepam (Ativan) 2 mg STAT STAT PO 02/17/19 07:15 02/17/19 07:16 DC 02/17/19 07:52 Magnesium Hydroxide (Milk Of Magnesia) 30 ml DAILYPRN PRN PO CONSTIPATION 02/17/19 09:00 Miscellaneous (Unresolved Clarification Entry) SEE LABEL COMMENTS DAILY XX 02/23/19 09:00 Nicotine (Nicoderm Cq 21mg) 1 patch DAILYPRN PRN TD NICOTINE WITHDRAWAL 02/17/19 17:15 Cancel Nicotine (Nicorette) 2 mg Q2HP PRN PO SMOKING CESSATION 02/19/19 12:45 02/19/19 12:45 DC Nicotine (Nicorette) 2 mg Q2HP PRN PO NICOTINE WITHDRAWAL 02/20/19 16:45 02/23/19 15:26 Nicotine (Nicorette) 4 mg Q2HP PRN PO NICOTINE WITHDRAWAL 02/17/19 21:45 02/23/19 15:55 DC 02/22/19 08:30 Olanzapine (ZyPREXA ZYDIS) 5 mg Q4HP PRN PO ANXIETY/AGITATION 02/18/19 12:00 02/23/19 18:34 Olanzapine (ZyPREXA ZYDIS) 5 mg STAT STAT PO 02/19/19 11:48 02/19/19 11:50 DC 02/19/19 11:55 Olanzapine (ZyPREXA ZYDIS) 10 mg Q6HP PRN PO ANXIETY/AGITATION 02/17/19 13:30 02/18/19 12:06 DC 02/17/19 23:16 Olanzapine (ZyPREXA) 2.5 mg BID PO 02/20/19 09:00 Cancel Olanzapine (ZyPREXA) 2.5 mg BID PO 02/20/19 21:00 02/24/19 08:09 Quetiapine Fumarate (SEROquel) 200 mg QHS PO 02/18/19 21:00 02/23/19 20:45 Trazodone HCl (Desyrel) 50 mg QHSP PRN PO INSOMNIA 02/17/19 21:00 02/21/19 22:05 Allergies Coded Allergies: latex (Verified Allergy, Severe, Swelling, 02/17/19) codeine (Verified Adverse Reaction, Intermediate, vomits, 02/17/19) promethazine (Verified Adverse Reaction, Unknown, makes me crazy, 02/17/19) JAMEE CURIEL DO Feb 24, 2019 9:00 am
[2019-02-24] MEDS ORDERED: LORazepam 2 MG TAB PO PRN (15:30)
[2019-02-24 16:53] VITALS: BP 125/74
[2019-02-24] MEDS: QUEtiapine FUMARATE 200 MG TAB PO SCH (20:02)
[2019-02-24] MEDS: DIVALPROEX 500 MG TAB PO SCH (20:03)
[2019-02-25 06:43] VITALS: BP 93/57
[2019-02-25] MEDS: OLANZapine 2.5MG TABLET PO SCH (09:11)
[2019-02-25] MEDS ORDERED: HYDR50TA70 PO (09:32)
[2019-02-25] MEDS ORDERED: DEPA1TAB3 PO (09:32)
[2019-02-25] MEDS ORDERED: ZYPR5TAB2 PO ×2 (09:32→09:34)
[2019-02-25] MEDS ORDERED: TRAZ-252 PO (09:32)
[2019-02-25] MEDS ORDERED: QUET200T2 PO (09:32)
--- NOTE | 2019-02-25 09:36 | MHDSPDOC ---
[facility] Discharge Summary Discharge Summary DATE OF ADMISSION: Feb 17, 2019 at 1:22 pm DATE OF DISCHARGE: Feb 25, 2019 DISCHARGE DIAGNOSES: Bipolar Disorder, Type 1, mre Mixed Manic episode REASON FOR ADMISSION: Patient is a 38 -year-old , female, who presented to the ED on 02/17 via [facility]. It was reported that she arrived at work ([employer]) that morning in an agitated state which escalated to rapid cycling between elevated/agitated mood followed by periods of sitting on the floor in a sullen/depressed state of mind. The police were contacted by her supervisor [employer] to assist, and upon their arrival she became highly agitated and uncooperative. She made reference to suicide as well as stated "this is why people shoot up schools." The patient then tried to leave work with the stated intent to drive to her children's school at which time she was taken into custody by [employer] and brought to the ED. Upon her arrival to the ED she remained agitated, uncooperative, and hostile. Her speech was rapid, pressured and tangential. When the handcuffs were removed she was seen slapping the wall and bed repeatedly in anger while screaming profanities at the police. When alone in the room the patient was hear rambling to herself angrily. When examined in the ED she continued to ramble angrily about being "dragged" here, when she reported that she intended to come here voluntarily after work. She reportedly told the nurse that she was manic for the past 30 days and that she has not slept for the last 20 days. She also reportedly mentioned she would kill herself if her children were taken away from her. CONSULTANTS INVOLVED: none TEST RESULTS: Depakote level 114.4 TREATMENT AND PROGRESS ON THE UNIT : Pt was admitted to [facility], seen for psychiatric assessment and started on depakote 500mg qhs (did increase to 750mg qhs but depakote level became toxic at 137.4 so back down to 500mg qhs) with depakote level upon 114.4 and mostly likely continuing to trend down to therapeutic level as depakote just decreased 3 days ago. She was also started zyrexa increased to 5mg bid and seroquel 200mg qhs. She was provided vistaril 50mg q6hr prn anxiety and trazodone 50mg qhs prn insomnia. Pt found her med ications beneficial and tolerated them well. She attended groups daily during her stay. Her symptoms improved with treatment. On day of discharge she denied depression, anxiety, insomnia, SI/HI, hallucinations, delusions. She was discharged home after family meeting with her parents with follow-up at [facility]. She felt safe for discharge. DISCHARGE ASSESSMENT: The patient was seen today and states she's feeling "great" and is greatly looking forward to going home with her mother today. She is cooperative and pleasant today. States she's looking forward to seeing her kids today. States her mother is supportive of her and will be aiding her upon d/c. Hopes to return to work in the future eventually. States she tolerating her medication and feels it's beneficial. She slept well last night. She reports she has been going to groups and continues to find them very helpful. Her appetite is good. She denies depression, maricarmen, anxiety, insomnia, SI/HI/AVH. She feels safe to d/c with his mother today. MENTAL STATUS EXAMINATION ON DISCHARGE: General Appearance: clean, ds/not appear stated age, hospital own personal clothing Build: thin Demeanor: average Eye Contact: average Activity: average Behavior: cooperative, pleasant Speech: clear, reg rate/volume/rhythm Mood: "great" Affect: euthymic, full range, appropriate Thought Process: logical/linear, intact Thought Content (Delusions): denies SI/HI/AVH Thought Content (Other): appropriate, coherent Thought Content (Aggressive): none reported Perception (Hallucinations): none reported Perception (Other): none reported Cognition (Impairment of): none reported Cognition(Intelligence Est.): average Oriented: Awake, Alert, Oriented times three Insight: fair-good Judgment: fair-good Psychosis: Denies MEDICATIONS ON DISCHARGE: 1. depakote 500mg qhs 2. seroquel 200mg qhs 3. vistaril 50mg q4hr prn anxiety 4. zyprexa 2.5mg qam and qnoon and 5mg qhs 5. trazodone 50mg qhs prn insomnia PLAN/FOLLOWUP ARRANGEMENTS: D/c home with her mother with follow-up at [facility]. The amount of time spent in the coordination of care for this patient was approximately 30 minutes. Vital Signs/I&Os Vital Signs Date Time Temp Pulse Resp B/P (MAP) Pulse Ox O2 Delivery O2 Flow Rate FiO2 02/25/19 06:43 98.7 82 16 93/57 (69) Laboratory Data Labs 24H Laboratory Tests 2 02/25/19 07:06: Valproic Acid (Depakene) Level 114.4H Medications Scheduled Lamotrigine (Lamictal) 25 Mg Tablet, 25 MG PO BID, (Reported) Quetiapine Fumarate (Seroquel) 100 Mg Tablet, 100 MG PO QHS, (Reported) Allergies Coded Allergies: latex (Verified Allergy, Severe, Swelling, 02/17/19) codeine (Verified Adverse Reaction, Intermediate, vomits, 02/17/19) promethazine (Verified Adverse Reaction, Unknown, makes me crazy, 02/17/19) JAMEE CURIEL DO Feb 25, 2019 9:36 am
[2019-02-25] MEDS: hydrOXYzine 50 MG TAB PO PRN (11:12)
== END 2019-02-25 11:50 | disposition home or self-care (01) | DRG 753 ==
LOC: M ED 07:09 → M ED INP 13:22 → M PSY 14:18
PROVIDERS: ADMIT Psychiatry & Neurology Psychiatry; ATTEND Psychiatry & Neurology Psychiatry
DX: F31.60 Bipolar disorder, current episode mixed, unspecified (principal); F43.10 Post-traumatic stress disorder, unspecified; J45.909 Unspecified asthma, uncomplicated; Z88.8 Allergy status to other drugs, medicaments and biological substances; Z91.040 Latex allergy status; Q67.6 Pectus excavatum; F12.90 Cannabis use, unspecified, uncomplicated; Z79.899 Other long term (current) drug therapy; F17.200 Nicotine dependence, unspecified, uncomplicated; E46 Unspecified protein-calorie malnutrition; Z63.5 Disruption of family by separation and divorce

== ENCOUNTER → 2019-04-01 | Outpatient (REF) | payer MEDICAID ==
[~2019-04-01] MED LIST changes: +DEPA1TAB3 PO; +HYDR50TA70 PO; +LAMI25TA PO; +QUET200T2 PO; +SERO1TAB PO; +TRAZ-252 PO; +ZYPR5TAB2 PO
[2019-04-01 17:41] LABS: BASO # 0.1 10^3/uL (0.0-0.2); BASO % 1.2 % (0.0-1.0); EOS # 0.1 10^3/uL (0.0-0.5); EOS % 1.7 % (0.0-3.0); HEMATOCRIT 40.3 % (36.0-47.0); HEMOGLOBIN 13.5 g/dl (12.0-15.5); LYMPH # 2.4 10^3/uL (1.5-5.0); LYMPH % 40.4 % (24.0-44.0); MEAN CORPUSCULAR HEMOGLOBIN 32.9 pg (27.0-33.0); MEAN CORPUSCULAR HGB CONC 33.5 g/dl (32.0-36.5); MEAN CORPUSCULAR VOLUME 98.3 fl (80.0-96.0); MONO # 0.6 10^3/uL (0.0-0.8); MONO % 9.1 % (0.0-5.0); NEUTROPHILS # 2.9 10^3/uL (1.5-8.5); NEUTROPHILS % 47.3 % (36.0-66.0); PLATELET COUNT, AUTOMATED 195 10^3/uL (150-450)
[2019-04-01 17:57] LABS: ALBUMIN 3.6 GM/DL (3.2-5.2); ALT/SGPT 18 U/L (12-78); BILIRUBIN,TOTAL 0.4 MG/DL (0.2-1.0); BLOOD UREA NITROGEN 12 MG/DL (7-18); CALCIUM LEVEL 8.8 MG/DL (8.5-10.1); CARBON DIOXIDE LEVEL 30 MEQ/L (21-32); CHLORIDE LEVEL 104 MEQ/L (98-107); CHOLESTEROL LEVEL 220 MG/DL (<200); CREATININE FOR GFR 0.78 MG/DL (0.55-1.30); FREE T4 0.93 NG/DL (0.76-1.46); GLOMERULAR FILTRATION RATE > 60.0 (>60); GLUCOSE, FASTING 82 MG/DL (70-100); HDL CHOLESTEROL 53 MG/DL (>40); LDL CHOLESTEROL 141 MG/DL (<100); NON-HDL-C 167 MG/DL; POTASSIUM SERUM 4.8 MEQ/L (3.5-5.1); SODIUM LEVEL 139 MEQ/L (136-145); TOTAL PROTEIN 6.6 GM/DL (6.4-8.2); TRIGLYCERIDES LEVEL 132 MG/DL (<150)
== END ==
LOC: M LAB REF 16:47
PROVIDERS: ATTEND Nurse Practitioner Family
DX: I95.9 Hypotension, unspecified (principal)

== ENCOUNTER → 2019-07-22 | Outpatient (CLI) | payer OTHER ==
[2019-07-22 12:37] LABS: VALPROIC ACID (DEPAKOTE) 137.8 UG/ML (50.0-100.0)
[2019-07-22 12:48] LABS: TOTAL 25(OH) VITAMIN D 25.6 NG/ML (30.0-100.0)
== END ==
LOC: M LAB 11:36
PROVIDERS: ATTEND Nurse Practitioner Pediatrics
DX: F31.10 Bipolar disorder, current episode manic without psychotic features, unspecified (principal)

== ENCOUNTER → 2019-08-10 | Outpatient (REF) | payer OTHER, MEDICAID ==
[2019-08-10 15:34] LABS: BASO # 0.1 10^3/uL (0.0-0.2); BASO % 0.9 % (0.0-1.0); EOS # 0.1 10^3/uL (0.0-0.5); EOS % 0.8 % (0.0-3.0); HEMATOCRIT 40.2 % (36.0-47.0); HEMOGLOBIN 13.7 g/dl (12.0-15.5); LYMPH # 3.3 10^3/uL (1.5-5.0); LYMPH % 44.7 % (24.0-44.0); MEAN CORPUSCULAR HEMOGLOBIN 32.8 pg (27.0-33.0); MEAN CORPUSCULAR HGB CONC 34.1 g/dl (32.0-36.5); MEAN CORPUSCULAR VOLUME 96.2 fl (80.0-96.0); MONO # 0.5 10^3/uL (0.0-0.8); MONO % 6.1 % (0.0-5.0); NEUTROPHILS # 3.5 10^3/uL (1.5-8.5); NEUTROPHILS % 47.1 % (36.0-66.0); PLATELET COUNT, AUTOMATED 283 10^3/uL (150-450); RED BLOOD COUNT 4.18 10^6/uL (4.00-5.40); WHITE BLOOD COUNT 7.4 10^3/uL (4.0-10.0)
[2019-08-10 16:04] LABS: ALBUMIN 3.9 GM/DL (3.2-5.2); ALT/SGPT 15 U/L (12-78); BILIRUBIN,TOTAL 0.6 MG/DL (0.2-1.0); BLOOD UREA NITROGEN 7 MG/DL (7-18); CALCIUM LEVEL 8.9 MG/DL (8.5-10.1); CARBON DIOXIDE LEVEL 29 MEQ/L (21-32); CHLORIDE LEVEL 106 MEQ/L (98-107); CHOLESTEROL LEVEL 221 MG/DL (<200); CREATININE FOR GFR 0.82 MG/DL (0.55-1.30); GLOMERULAR FILTRATION RATE > 60.0 (>60); GLUCOSE, FASTING 80 MG/DL (70-100); HDL CHOLESTEROL 49 MG/DL (>40); LDL CHOLESTEROL 154 MG/DL (<100); NON-HDL-C 172 MG/DL; POTASSIUM SERUM 4.4 MEQ/L (3.5-5.1); SODIUM LEVEL 139 MEQ/L (136-145); TOTAL PROTEIN 6.8 GM/DL (6.4-8.2); TRIGLYCERIDES LEVEL 90 MG/DL (<150)
== END ==
LOC: M LAB REF 14:51
PROVIDERS: ATTEND Nurse Practitioner Family
DX: F17.200 Nicotine dependence, unspecified, uncomplicated (principal); I95.9 Hypotension, unspecified; Z13.9 Encounter for screening, unspecified; F32.9 Major depressive disorder, single episode, unspecified; F41.9 Anxiety disorder, unspecified

== ENCOUNTER → 2019-09-17 | Outpatient (REF) | payer OTHER, MEDICAID ==
[2019-09-17 17:21] LABS: BASO # 0.1 10^3/uL (0.0-0.2); BASO % 0.8 % (0.0-1.0); EOS % 0.7 % (0.0-3.0); HEMATOCRIT 43.4 % (36.0-47.0); LYMPH # 2.5 10^3/uL (1.5-5.0); LYMPH % 41.8 % (24.0-44.0); MEAN CORPUSCULAR HGB CONC 34.6 g/dl (32.0-36.5); MEAN CORPUSCULAR VOLUME 95.6 fl (80.0-96.0); MONO # 0.5 10^3/uL (0.0-0.8); MONO % 8.1 % (0.0-5.0); NEUTROPHILS # 2.9 10^3/uL (1.5-8.5); NEUTROPHILS % 48.4 % (36.0-66.0); PLATELET COUNT, AUTOMATED 237 10^3/uL (150-450); RED BLOOD COUNT 4.54 10^6/uL (4.00-5.40); WHITE BLOOD COUNT 5.9 10^3/uL (4.0-10.0)
[2019-09-17 17:49] LABS: ALBUMIN 3.8 GM/DL (3.2-5.2); ALT/SGPT 9 U/L (12-78); BILIRUBIN,TOTAL 0.5 MG/DL (0.2-1.0); BLOOD UREA NITROGEN 7 MG/DL (7-18); CALCIUM LEVEL 9.3 MG/DL (8.5-10.1); CARBON DIOXIDE LEVEL 28 MEQ/L (21-32); CHLORIDE LEVEL 103 MEQ/L (98-107); CREATININE FOR GFR 0.83 MG/DL (0.55-1.30); GLOMERULAR FILTRATION RATE > 60.0 (>60); GLUCOSE, FASTING 95 MG/DL (70-100); POTASSIUM SERUM 4.1 MEQ/L (3.5-5.1); SODIUM LEVEL 138 MEQ/L (136-145); TOTAL PROTEIN 6.7 GM/DL (6.4-8.2); VALPROIC ACID (DEPAKOTE) 93.4 UG/ML (50.0-100.0)
== END ==
LOC: M LAB REF 16:35
PROVIDERS: ATTEND Counselor Mental Health
DX: F31.9 Bipolar disorder, unspecified (principal)

== ENCOUNTER → 2020-02-03 | Outpatient (REF) | payer OTHER, SELFPAY ==
[2020-02-03 13:47] LABS: BASO # 0.1 10^3/uL (0.0-0.2); BASO % 0.7 % (0.0-1.0); EOS # 0.2 10^3/uL (0.0-0.5); EOS % 1.8 % (0.0-3.0); HEMATOCRIT 43.4 % (36.0-47.0); HEMOGLOBIN 14.6 g/dl (12.0-15.5); LYMPH # 3.5 10^3/uL (1.5-5.0); LYMPH % 38.9 % (24.0-44.0); MEAN CORPUSCULAR HEMOGLOBIN 32.8 pg (27.0-33.0); MEAN CORPUSCULAR HGB CONC 33.6 g/dl (32.0-36.5); MEAN CORPUSCULAR VOLUME 97.5 fl (80.0-96.0); MONO # 0.7 10^3/uL (0.0-0.8); NEUTROPHILS # 4.5 10^3/uL (1.5-8.5); NEUTROPHILS % 50.4 % (36.0-66.0); PLATELET COUNT, AUTOMATED 233 10^3/uL (150-450); RED BLOOD COUNT 4.45 10^6/uL (4.00-5.40); WHITE BLOOD COUNT 8.9 10^3/uL (4.0-10.0)
[2020-02-03 13:53] LABS: ALBUMIN 3.7 GM/DL (3.2-5.2); ALT/SGPT 10 U/L (12-78); BILIRUBIN,TOTAL 0.3 MG/DL (0.2-1.0); BLOOD UREA NITROGEN 10 MG/DL (7-18); CALCIUM LEVEL 8.9 MG/DL (8.5-10.1); CARBON DIOXIDE LEVEL 27 MEQ/L (21-32); CHLORIDE LEVEL 108 MEQ/L (98-107); CHOLESTEROL LEVEL 204 MG/DL (<200); CHOLESTEROL RISK RATIO 4.434 (<5); CREATININE FOR GFR 0.81 MG/DL (0.55-1.30); GLOMERULAR FILTRATION RATE > 60.0 (>60); GLUCOSE, FASTING 88 MG/DL (70-100); HDL CHOLESTEROL 46 MG/DL (>40); LDL CHOLESTEROL 130 MG/DL (<100); NON-HDL-C 158 MG/DL; POTASSIUM SERUM 4.4 MEQ/L (3.5-5.1); SODIUM LEVEL 141 MEQ/L (136-145); TOTAL PROTEIN 6.4 GM/DL (6.4-8.2); TRIGLYCERIDES LEVEL 139 MG/DL (<150)
== END ==
LOC: M LAB REF 09:00
PROVIDERS: ATTEND Nurse Practitioner Family
DX: E78.00 Pure hypercholesterolemia, unspecified (principal); F17.200 Nicotine dependence, unspecified, uncomplicated; I95.9 Hypotension, unspecified; Z13.9 Encounter for screening, unspecified

== ENCOUNTER 2020-06-05 13:21 | Emergency (ER) | payer OTHER ==
[~2020-06-05] VITALS: Ht 144.8 cm; Wt 100.0 kg
[2020-06-05] MEDS ORDERED: DIVA500T94 PO (13:32)
--- NOTE | 2020-06-05 14:01 | REP ---
INDICATION: TRAUMA COMPARISON: None. TECHNIQUE: AP, lateral, bilateral oblique views left foot. FINDINGS: The osseous structures and joint spaces are intact and normal. There is no evidence for acute fracture or dislocation. Surrounding soft tissues are unremarkable. No subcutaneous emphysema or radiodense foreign body. IMPRESSION: . No acute fracture or dislocation. <Electronically signed by Lisandro Gillis > 06/05/20 [id number]
[2020-06-05 15:40] VITALS: BP 157/86
== END 2020-06-05 15:41 | disposition home or self-care (01) ==
LOC: M ED 13:21
DX: S99.922A Unspecified injury of left foot, initial encounter (principal); M25.572 Pain in left ankle and joints of left foot; M79.89 Other specified soft tissue disorders; W07.XXXA Fall from chair, initial encounter; Y92.098 Other place in other non-institutional residence as the place of occurrence of the external cause; F31.9 Bipolar disorder, unspecified; F41.9 Anxiety disorder, unspecified; J45.909 Unspecified asthma, uncomplicated; F42.9 Obsessive-compulsive disorder, unspecified; F17.210 Nicotine dependence, cigarettes, uncomplicated; Z88.5 Allergy status to narcotic agent; Z88.8 Allergy status to other drugs, medicaments and biological substances; Z91.040 Latex allergy status

== ENCOUNTER → 2020-08-29 | Outpatient (REF) | payer OTHER ==
[~2020-08-29] MED LIST changes: +DIVA500T94 PO
[2020-08-29 12:50] LABS: ALBUMIN 3.5 GM/DL (3.2-5.2); ALT/SGPT < 6 U/L (12-78); BILIRUBIN,DIRECT < 0.1 MG/DL (0.0-0.2); BILIRUBIN,TOTAL 0.2 MG/DL (0.2-1.0); TOTAL PROTEIN 6.3 GM/DL (6.4-8.2)
[2020-08-29 13:13] LABS: BASO # 0.1 10^3/uL (0.0-0.2); BASO % 0.8 % (0.0-1.0); EOS # 0.1 10^3/uL (0.0-0.5); EOS % 1.4 % (0.0-3.0); HEMATOCRIT 40.5 % (36.0-47.0); HEMOGLOBIN 13.6 g/dl (12.0-15.5); LYMPH # 3.2 10^3/uL (1.5-5.0); LYMPH % 48.6 % (24.0-44.0); MEAN CORPUSCULAR HEMOGLOBIN 32.5 pg (27.0-33.0); MEAN CORPUSCULAR HGB CONC 33.6 g/dl (32.0-36.5); MEAN CORPUSCULAR VOLUME 96.9 fl (80.0-96.0); MONO # 0.5 10^3/uL (0.0-0.8); MONO % 8.2 % (2.0-8.0); NEUTROPHILS # 2.7 10^3/uL (1.5-8.5); NEUTROPHILS % 40.7 % (36.0-66.0); PLATELET COUNT, AUTOMATED 199 10^3/uL (150-450); RED BLOOD COUNT 4.18 10^6/uL (4.00-5.40); WHITE BLOOD COUNT 6.6 10^3/uL (4.0-10.0)
== END ==
LOC: M LAB REF 11:53
PROVIDERS: ATTEND Counselor Mental Health
DX: F31.9 Bipolar disorder, unspecified (principal)

== ENCOUNTER → 2022-02-05 | Outpatient (CLI) | payer OTHER | LOC: M WHC 08:21 | PROVIDERS: ATTEND Nurse Practitioner Family | DX: Z12.31 Encounter for screening mammogram for malignant neoplasm of breast (principal); Z80.3 Family history of malignant neoplasm of breast; R92.8 Other abnormal and inconclusive findings on diagnostic imaging of breast ==

== ENCOUNTER → 2022-03-07 | Outpatient (CLI) | payer OTHER | LOC: M WHC 14:25 | PROVIDERS: ATTEND Nurse Practitioner Family | DX: R92.8 Other abnormal and inconclusive findings on diagnostic imaging of breast (principal) ==

== ENCOUNTER 2022-05-10 15:02 | Inpatient (IN) | payer MEDICAID, OTHER ==
[~2022-05-10 15:02] MED LIST changes: +ADDE10TA PO; +VENTAER INH
[2022-05-10 16:12] LABS: HEMOGLOBIN 14.7 g/dl (12.0-15.5); MEAN CORPUSCULAR HEMOGLOBIN 33.1 pg (27.0-33.0); MEAN CORPUSCULAR HGB CONC 34.2 g/dl (32.0-36.5); MEAN CORPUSCULAR VOLUME 96.8 fl (80.0-96.0); PLATELET COUNT, AUTOMATED 294 10^3/uL (150-450); RED BLOOD COUNT 4.44 10^6/uL (4.00-5.40); WHITE BLOOD COUNT 8.8 10^3/uL (4.0-10.0)
[2022-05-10 16:32] LABS: ETHYL ALCOHOL (ETHANOL) 0.003 % (0.000-0.010)
[2022-05-10 16:34] LABS: BILIRUBIN,DIRECT 0.1 MG/DL (<0.4); SALICYLATE LEVEL < 3.0 MG/DL (<30)
[2022-05-10 16:35] LABS: ACETAMINOPHEN LEVEL < 2.0 UG/ML (10.0-20.0)
[2022-05-10 16:41] LABS: ALKALINE PHOSPHATASE 78 U/L (46-116); ALT/SGPT < 9 U/L (7.0-40); AST/SGOT 19 U/L (<34); BILIRUBIN,TOTAL 0.4 MG/DL (0.3-1.2); BLOOD UREA NITROGEN 12 MG/DL (9-23); CALCIUM LEVEL 9.3 MG/DL (8.5-10.1); CARBON DIOXIDE LEVEL 23 MMOL/L (20-31); CHLORIDE LEVEL 106 MMOL/L (98-107); CREATININE FOR GFR 0.72 MG/DL (0.55-1.30); GLOMERULAR FILTRATION RATE > 60.0 (>60); GLUCOSE, FASTING 129 MG/DL (60-100); POTASSIUM SERUM 3.4 MMOL/L (3.5-5.1); SODIUM LEVEL 140 MMOL/L (136-145); THYROID STIMULATING HORMONE 0.589 uIU/ML (0.55-4.78); TOTAL PROTEIN 6.5 G/DL (5.7-8.2)
[2022-05-10 17:05] LABS: AMPHETAMINES LEVEL URINE NEGATIVE (NEGATIVE); BARBITURATES URINE NEGATIVE (NEGATIVE); BENZODIAZEPINES URINE NEGATIVE (NEGATIVE); COCAINE METABOLITE URINE NEGATIVE (NEGATIVE); METHADONE URINE NEGATIVE (NEGATIVE); OPIATES URINE NEGATIVE (NEGATIVE)
[2022-05-10 17:06] LABS: PHENCYCLIDINE URINE NEGATIVE (NEGATIVE)
[2022-05-10 17:16] LABS: CANNABINOIDS URINE POSITIVE (NEGATIVE)
[2022-05-10 19:33] LABS: VALPROIC ACID (DEPAKOTE) < 3.0 UG/ML (50.0-100.0)
[2022-05-10] MEDS ORDERED: HOME MED LIST COMPLETE! XX SCH (19:55)
[2022-05-10] MEDS ORDERED: MOM 30ML SUSPENSION UDC PO PRN (21:00)
[2022-05-10] MEDS ORDERED: MAALOX 30 ML SUSP *UDC PO PRN (21:00)
[2022-05-10] MEDS ORDERED: OLANZapine ORAL DISINTEGRATING TAB 5MG PO PRN (21:00)
[2022-05-10] MEDS ORDERED: traZODone 50 MG TAB PO PRN (21:00)
[2022-05-10] MEDS ORDERED: hydrOXYzine 50 MG TAB PO PRN (21:00)
[2022-05-10] MEDS ORDERED: ACETAMINOPHEN TAB 650MG DOSE (2X325MG) PO PRN (21:00)
[2022-05-10 22:26] LABS: RSV AMPLIFICATION NEGATIVE (NEGATIVE)
[2022-05-10 23:24] VITALS: BP 145/69
[2022-05-11] MEDS ORDERED: LORazepam 2 MG TAB PO ONE (08:45)
[2022-05-11] MEDS: DIVALPROEX 250 MG TAB PO SCH ×2 (10:31→21:40)
[2022-05-11] MEDS: OLANZapine 5 MG TAB PO SCH ×2 (11:03→21:40)
[2022-05-11] MEDS: cloNIDine 0.1MG TABLET PO SCH (21:00)
[2022-05-12 06:16] VITALS: BP 114/82
[2022-05-12] MEDS: cloNIDine 0.1MG TABLET PO SCH ×2 (08:52→21:00)
[2022-05-12] MEDS: OLANZapine 5 MG TAB PO SCH ×2 (08:52→20:56)
[2022-05-12] MEDS: DIVALPROEX 250 MG TAB PO SCH ×2 (08:52→20:56)
[2022-05-12] MEDS ORDERED: ALBUTEROL 90 MCG/ACT 8GM HFA INHALER INH PRN (12:40)
[2022-05-12 18:22] VITALS: BP 105/56
[2022-05-13 06:23] VITALS: BP 114/57
[2022-05-13] MEDS: DIVALPROEX 250 MG TAB PO SCH ×2 (09:38→20:10)
[2022-05-13] MEDS: OLANZapine 5 MG TAB PO SCH ×2 (09:38→20:10)
[2022-05-13] MEDS: cloNIDine 0.1MG TABLET PO SCH ×2 (09:39→20:10)
[2022-05-13 18:00] VITALS: BP 112/58
[2022-05-14 06:34] VITALS: BP 109/69
[2022-05-14 07:38] VITALS: BP 109/69
[2022-05-14] MEDS: cloNIDine 0.1MG TABLET PO SCH (07:38)
[2022-05-14] MEDS: DIVALPROEX 250 MG TAB PO SCH (07:39)
[2022-05-14] MEDS: OLANZapine 5 MG TAB PO SCH (07:39)
[2022-05-14] MEDS ORDERED: DEPA1TAB3 PO (09:50)
[2022-05-14] MEDS ORDERED: CLONI1TA PO (09:50)
[2022-05-14] MEDS ORDERED: OLAN1TAB20 PO (09:50)
[2022-05-14] MEDS ORDERED: HYDR50TA70 PO (09:50)
[2022-05-14] MEDS ORDERED: VENTAER INH (09:50)
== END 2022-05-14 12:10 | disposition home or self-care (01) | DRG 753 ==
LOC: M ED 15:02 → M ED INP 21:12 → M PSY 23:00
PROVIDERS: ADMIT Psychiatry & Neurology Psychiatry; ATTEND Psychiatry & Neurology Psychiatry
DX: F31.60 Bipolar disorder, current episode mixed, unspecified (principal); E55.9 Vitamin D deficiency, unspecified; F12.10 Cannabis abuse, uncomplicated; F17.200 Nicotine dependence, unspecified, uncomplicated; F90.9 Attention-deficit hyperactivity disorder, unspecified type; J45.909 Unspecified asthma, uncomplicated; E78.5 Hyperlipidemia, unspecified; G43.909 Migraine, unspecified, not intractable, without status migrainosus; Q67.6 Pectus excavatum; Z79.899 Other long term (current) drug therapy; Z88.6 Allergy status to analgesic agent; Z88.8 Allergy status to other drugs, medicaments and biological substances; Z88.5 Allergy status to narcotic agent; Z91.040 Latex allergy status

== ENCOUNTER → 2022-07-18 | Outpatient (REF) | payer MEDICAID, OTHER ==
[~2022-07-18] MED LIST changes: +CLONI1TA PO; +OLAN1TAB20 PO
== END ==
LOC: M SFHCWAGY 17:17
PROVIDERS: ATTEND Obstetrics & Gynecology
DX: Z12.72 Encounter for screening for malignant neoplasm of vagina (principal); Z12.4 Encounter for screening for malignant neoplasm of cervix

== ENCOUNTER → 2022-09-24 | Outpatient (CLI) | payer OTHER | LOC: M WHC 14:21 | PROVIDERS: ATTEND Nurse Practitioner Women's Health | DX: D24.1 Benign neoplasm of right breast (principal) ==

== ENCOUNTER → 2023-09-11 | Outpatient (CLI) | payer OTHER ==
[~2023-09-11] MED LIST changes: +PROHANCE 279.3MG/ML 5ML VIAL ONE
== END ==
LOC: M PLAIMG 12:25
PROVIDERS: ATTEND Nurse Practitioner Women's Health
DX: R92.30 Dense breasts, unspecified (principal); Z80.3 Family history of malignant neoplasm of breast; Z91.89 Other specified personal risk factors, not elsewhere classified

== ENCOUNTER → 2024-04-07 | Outpatient (CLI) | payer OTHER ==
[~2024-04-07] MED LIST changes: -PROHANCE 279.3MG/ML 5ML VIAL ONE
== END ==
LOC: M WHC 15:52
PROVIDERS: ATTEND Nurse Practitioner Family
DX: Z12.31 Encounter for screening mammogram for malignant neoplasm of breast (principal)

== ENCOUNTER → 2025-04-30 | Outpatient (CLI) | payer OTHER ==
[~2025-04-30] MED LIST changes: +DIVA-41 PO; -DIVA500T94 PO
== END ==
LOC: M WHC 14:53
PROVIDERS: ATTEND Physician Assistant
DX: Z12.31 Encounter for screening mammogram for malignant neoplasm of breast (principal)

== ENCOUNTER → 2025-05-24 | Outpatient (CLI) | payer OTHER | LOC: M WHC 14:19 | PROVIDERS: ATTEND Physician Assistant | DX: N60.02 Solitary cyst of left breast (principal); R92.8 Other abnormal and inconclusive findings on diagnostic imaging of breast ==